=== PATIENT | male | born 1975 | race Caucasian/White ===

== ENCOUNTER 2019-03-01 08:00 | Outpatient (CLI) | payer OTHER ==
[~2019-03-01] VITALS: Ht 172.7 cm; Wt 92.1 kg
[2019-03-01] MEDS ORDERED: ACET-2119 PO (09:37)
[2019-03-01] MEDS ORDERED: IBUP-1984 PO (09:37)
[2019-03-06] MEDS ORDERED: ringers solution, lacted 1,000 ML IV SCH (11:45)
[2019-03-06] MEDS ORDERED: cefazolin/dext.iso 2gm/100 ML IV ONE (11:45)
[2019-03-06] MEDS ORDERED: famotidine 20mg tablet PO ONE (11:45)
[2019-03-28] MEDS ORDERED: CYCL-394 PO (10:06)
== END 2019-03-01 08:05 | disposition home or self-care (01) ==
LOC: PRE-OP 08:00 → EEVIPCON 03-06 16:45 → EDSTATUS 03-06 16:45
PROVIDERS: ATTEND Orthopaedic Surgery
DX: S42.002A Fracture of unspecified part of left clavicle, initial encounter for closed fracture (principal); Z53.21 Procedure and treatment not carried out due to patient leaving prior to being seen by health care provider
CPT/HCPCS: J7120

== ENCOUNTER 2019-04-03 10:58 | Day surgery (SDC) | payer OTHER ==
[~2019-04-03] VITALS: Ht 170.2 cm; Wt 90.0 kg
[2019-04-03] VITALS (9 sets, daily range): BP systolic 100–120; BP diastolic 54–67
[~2019-04-03 10:58] MED LIST: ACET-2119 PO; CYCL-394 PO; IBUP-1984 PO
[2019-04-03] MEDS ORDERED: famotidine 20mg tablet PO ONE (11:45)
[2019-04-03] MEDS ORDERED: ringers solution, lacted 1,000 ML IV SCH ×2 (11:45→12:52)
[2019-04-03] MEDS ORDERED: cefazolin/dext.iso 2gm/100 ML IV ONE (11:45)
[2019-04-03] MEDS ORDERED: ceFAZolin 1000mg inj ONE (11:56)
[2019-04-03] MEDS ORDERED: BUPIVAcaine/PF 2.5 mg/ml (0.25%) 30ml vial ONE (11:57)
[2019-04-03 12:09] LABS: BASOPHILS # (AUTO) 0.1 X10'3 (0-0.2); BASOPHILS % (AUTO) 1.1 % (0-1); EOSINOPHILS # (AUTO) 0.5 X10'3 (0-0.9); EOSINOPHILS % (AUTO) 7.4 % (0-6); LYMPHOCYTES # (AUTO) 1.8 X10'3 (1.1-4.8); LYMPHOCYTES % (AUTO) 28.6 % (21-51); MEAN CORPUSCULAR HEMOGLOBIN 29.5 PG (27.0-31.0); MEAN CORPUSCULAR HGB CONC 33.4 g/dL (33.0-36.5); MEAN CORPUSCULAR VOLUME 88.4 FL (78-98); MEAN PLATELET VOLUME 9.5 FL (7.4-10.4); MONOCYTES # (AUTO) 0.4 X10'3 (0-0.9); MONOCYTES % (AUTO) 6.8 % (2-12); NEUTROPHILS # (AUTO) 3.6 X10'3 (1.8-7.7); NEUTROPHILS % (AUTO) 56.1 % (42-75); PRE OP HEMATOCRIT 44.5 % (42.0-52.0); PRE OP HEMOGLOBIN 14.9 g/dL (14.0-17.9); PRE OP PLATELET COUNT 251 X10'3 (140-440); RED BLOOD COUNT 5.03 X10'6 (4.70-6.10)
[2019-04-03 12:23] LABS: ALBUMIN 4.2 G/DL (3.4-5.0); ALBUMIN/GLOBULIN RATIO 1.3 (1.1-1.5); ALKALINE PHOSPHATASE 71 IU/L (46-116); BLOOD UREA NITROGEN 10 MG/DL (7-18); BUN/CREATININE RATIO 11.5 (5.4-32.0); CALCIUM 9.2 MG/DL (8.5-10.1); CHLORIDE 109 MMOL/L (99-107); CREATININE 0.87 MG/DL (0.60-1.10); PRE OP ALT 30 U/L (30-65); PRE OP ANION GAP 7 (8-16); PRE OP AST 14 U/L (10-37); PRE OP BILIRUB, TOTAL 0.3 MG/DL (0.0-1.0); PRE OP GLUCOSE 98 MG/DL (70-104); PRE OP POTASSIUM 4.6 MMOL/L (3.4-5.1); PRE OP SODIUM 146 MMOL/L (135-145); TOTAL CARBON DIOXIDE 29.7 MMOL/L (24-32); TOTAL PROTEIN 7.4 G/DL (6.4-8.2); eGFR > 90 ML/MIN
[2019-04-03] MEDS ORDERED: proCHLORperazine 10 MG/2 ml inj IV PRN (12:55)
[2019-04-03] MEDS ORDERED: ondansetron/PF 4mg/2ml inj IV PRN (12:55)
[2019-04-03] MEDS ORDERED: meperidine/PF 25mg/ml syringe IV PRN ×3 (12:55)
[2019-04-03] MEDS ORDERED: dexamethasone sod phosphate 10mg/ml inj ONE (13:30)
[2019-04-03] MEDS ORDERED: sevoflurane 250ml liquid IH ONE (13:30)
[2019-04-03] MEDS ORDERED: LIDOcaine 2% (20mg/ml) 5ml vial ONE (13:35)
[2019-04-03] MEDS ORDERED: propofol inj 20 ML IV ONE (13:35)
[2019-04-03] MEDS ORDERED: fentaNYL/PF 50MCG/1 ML 2ML syringe ONE (13:35)
[2019-04-03] MEDS ORDERED: MIDAZolam 5mg/5ml vial ONE (13:35)
[2019-04-03] MEDS ORDERED: ROPIVAcaine 0.5% (5mg/ml) 30ml vial ONE (13:36)
[2019-04-03] MEDS ORDERED: rocuronium 10mg/ml inj IV ONE (15:39)
[2019-04-03] MEDS ORDERED: ondansetron/PF 4mg/2ml inj ONE (15:49)
[2019-04-03] MEDS ORDERED: ketorolac trometh. 30mg/ml inj. ONE (15:49)
--- NOTE | 2019-04-03 15:52 | NUR ---
Received from OR via [facility], accompanied by Anesthesiologist DR CASEY and report given by Anesthesiologist. PT AWAKE, DENIES PAIN, IS ABLE TO MOVE FINGERS ON LEFT HAND, STATES IS NUMB, LEFT SHOULDER W/ISLAND GERRY CDI, SLING, ICE PACK, IMMOBILIZER. Addendum: 04/03/19 at 1609 by Benita Rose RN Amended: Links added.
== END 2019-04-03 17:02 ==
LOC: PAS 10:58 → EEVIPCON 14:15 → PAS 17:02
PROVIDERS: ATTEND Orthopaedic Surgery
DX: S42.012K Anterior displaced fracture of sternal end of left clavicle, subsequent encounter for fracture with nonunion (principal); F17.290 Nicotine dependence, other tobacco product, uncomplicated; I10 Essential (primary) hypertension; G89.18 Other acute postprocedural pain; Z88.8 Allergy status to other drugs, medicaments and biological substances; Z79.899 Other long term (current) drug therapy; X58.XXXD Exposure to other specified factors, subsequent encounter
CPT/HCPCS: 23515; 36415; 64416; 80053; 85025; C1713; J0690; J1885; J2001; J2250; J2405; J2704; J3010; J3490; J7120; A4215; A4565; A4618; A7000; J1100; J2795

== ENCOUNTER 2025-04-10 09:24 | Outpatient (CLI) | payer OTHER ==
--- NOTE | 2025-04-10 12:10 | RADIOLOGY REPORT ---
CLINICAL HISTORY: 49 years old, Male; Multiple fractures of ribs, unspecified side, initial encounte r for closed. TECHNIQUE: Single PA upright view of the chest was obtained. AP and oblique views of the right ribs were obtained. COMPARISON: None FINDINGS: There are acute fractures of the right posterior 5th through 8th ribs with mild displaceme nt. Possible nondisplaced fracture of the right posterior 9th rib. No pneumothorax visualized. No ple ural effusion. Lungs are otherwise clear. Cardiac and mediastinal contours are within normal limits i n size. Pulmonary vasculature is normal. Postsurgical changes of prior open reduction internal fixati on of the left clavicle. IMPRESSION: 1. Acute appearing fractures of the right posterior 5th through 8th ribs with mild displacement, and possible nondisplaced fracture of the right posterior 9th rib. 2. No pneumothorax or pleural effusion visualized. No other evidence of acute disease in the chest. C orrelate with clinical findings. If clinically indicated, CT could be obtained.
== END 2025-04-10 23:59 | disposition home or self-care (01) ==
LOC: RAD 09:24
PROVIDERS: ATTEND Family Medicine
DX: S22.41XA Multiple fractures of ribs, right side, initial encounter for closed fracture (principal); X58.XXXA Exposure to other specified factors, initial encounter; Y93.89 Activity, other specified; Y92.89 Other specified places as the place of occurrence of the external cause; Y99.8 Other external cause status
CPT/HCPCS: 71101